=== PATIENT | female | born 1995 | race Hispanic/Latino ===

== ENCOUNTER 2021-11-09 15:09 | Outpatient (CLI) | payer OTHER | END 2021-11-09 15:10 | disposition home or self-care (01) | LOC: CSHULT 15:09 | PROVIDERS: ATTEND Nurse Practitioner Women's Health | DX: O09.212 Supervision of pregnancy with history of pre-term labor, second trimester (principal); Z3A.21 21 weeks gestation of pregnancy | CPT/HCPCS: 76805 ==

== ENCOUNTER 2022-03-02 20:59 | Inpatient (IN) | payer OTHER ==
[~2022-03-02 20:59] MED LIST: Bupivacaine 0.25% HCL 30 ML VIAL ONE
[2022-03-02] MEDS ORDERED: hydrALAZINE 20 MG/ML VIAL SLOW IVP PRN (21:48)
[2022-03-02] MEDS ORDERED: Lidocaine 1% (PF) 30 ML VIAL SC PRN (21:48)
[2022-03-02] MEDS ORDERED: Promethazine HCl 25 MG/ML VIAL IM PRN ×2 (21:48→23:58)
[2022-03-02] MEDS ORDERED: Ondansetron PF 4 MG/2 ML Vial IVP PRN ×2 (21:48→23:58)
[2022-03-02] MEDS ORDERED: Penicillin G Potassium 5 MILL.UNITS VIAL ONE (21:53)
[2022-03-02] MEDS ORDERED: Methylergonovine 0.2 MG/ML VIAL IM PRN (21:55)
[2022-03-02] MEDS ORDERED: Misoprostol 200 MCG TAB PR PRN (21:55)
[2022-03-02] MEDS ORDERED: Carboprost 250 MCG/ML AMP IM PRN (21:55)
[2022-03-02 22:00] LABS: Mean Corpuscular HGB CONC 33.5 g/dL (32.0-36.0); Mean Corpuscular Hemoglobin 26.2 pg (27.0-33.0); Mean Corpuscular Volume 78.1 fl (81.6-98.3); Mean Platelet Volume 12.3 fl (7.4-10.4); Platelet Count 195 10x3/uL (150-450); RBC Distribution Width 14.3 % (11.5-14.5); White Blood Cell (WBC) Count 10.2 10x3/uL (3.5-10.5)
[2022-03-02] MEDS ORDERED: Penicillin G Potassium 5 MILL.UNITS in Sodium Chloride 0.9% 100 ML IVPB SCH (22:00)
[2022-03-02 22:27] LABS: Hep B Surf Ag Non-Reactive S/CO (NonReactive)
[2022-03-02 22:28] LABS: Syphilis Antibody Nonreactive (Nonreactive); Syphilis Antibody Index 0.03 S/CO (<1.00 Non-Reactive)
[2022-03-02 22:29] LABS: HBSAg Index 0.19 S/CO (0-0.99)
[2022-03-02] MEDS ORDERED: Fentanyl 2 mcg/Bup 0.1% Cadd 100 ML ONE (23:18)
[2022-03-02] MEDS ORDERED: Fentanyl 2 mcg/Bupivacaine 0.1% Cassette 100 ML EPIDURAL SCH (23:45)
[2022-03-02] MEDS ORDERED: Communication Order-Pharmacy FS SCH (23:45)
[2022-03-02] MEDS ORDERED: ePHEDrine Sulfate 50 MG/10 ML VIAL SLOW IVP PRN (23:58)
[2022-03-02] MEDS ORDERED: diphenhydrAMINE 50 MG/ML VIAL IVP PRN (23:58)
[2022-03-02] MEDS ORDERED: Moisturizing Cream (Eucerin) 113 GM JAR TOP PRN (23:58)
[2022-03-02] MEDS ORDERED: Naloxone HCl 0.4 mg/ml Vial IVP PRN ×2 (23:58)
[2022-03-02] MEDS ORDERED: Acetaminophen 325 MG TAB PO PRN (23:58)
[2022-03-02] MEDS ORDERED: Lactated Ringer's 500 ML IV PRN (23:58)
[2022-03-02] MEDS ORDERED: NS w/ Oxytocin 30 units 500 ML IV SCH (23:59)
[2022-03-03] VITALS: BMI 43.4
[2022-03-03] MEDS: Penicillin G 2.5 MILL.units 2.5 MILL.UNITS in Premix Bag 1 BAG IVPB SCH ×2 (03:16→13:33)
[2022-03-03] MEDS ORDERED: Fentanyl 2 mcg/Bup 0.1% Cadd 100 ML ONE (07:17)
[2022-03-03] MEDS ORDERED: Milk Of Magnesia 30 ML UDCUP PO PRN (10:43)
[2022-03-03] MEDS ORDERED: hydrALAZINE 20 MG/ML VIAL SLOW IVP PRN (10:43)
[2022-03-03] MEDS ORDERED: Bisacodyl 10 MG SUPP PR PRN (10:43)
[2022-03-03] MEDS ORDERED: diphenhydrAMINE 25 MG CAP PO PRN (10:43)
[2022-03-03] MEDS ORDERED: Lanolin Ointment 7 GM TUBE TOP PRN (10:43)
[2022-03-03] MEDS ORDERED: Boostrix 0.5 ML (Tdap) VIAL IM ONE (10:43)
[2022-03-03] MEDS ORDERED: Promethazine HCl 25 MG/ML VIAL IM PRN (10:43)
[2022-03-03] MEDS ORDERED: Ondansetron PF 4 MG/2 ML Vial IVP PRN (10:43)
[2022-03-03] MEDS: Ibuprofen 800 MG TAB PO SCH ×2 (13:55→21:24)
[2022-03-03] MEDS: Ferrous Sulfate 325 MG TAB PO SCH (15:04)
[2022-03-03 18:05] LABS: SARS-CoV-2 PCR by NAA Not Detected (NotDetected)
[2022-03-03] MEDS: HYDROcodone/Acetaminophen 5/325 mg Tablet PO PRN (19:21)
[2022-03-03] MEDS: Benzocaine-Menthol 82.5 ML CAN TOP PRN (19:22)
[2022-03-03] MEDS: Docusate 100 MG CAP PO SCH (21:24)
[2022-03-04] MEDS: Ibuprofen 800 MG TAB PO SCH ×3 (05:14→22:01)
[2022-03-04] MEDS: Ferrous Sulfate 325 MG TAB PO SCH ×2 (08:34→16:51)
[2022-03-04] MEDS: Benzocaine-Menthol 82.5 ML CAN TOP PRN (08:40)
[2022-03-04] MEDS: Prenatal Vitamin 1 TAB PO SCH (08:41)
[2022-03-04] MEDS: Docusate 100 MG CAP PO SCH ×2 (08:41→22:05)
[2022-03-04] MEDS: HYDROcodone/Acetaminophen 5/325 mg Tablet PO PRN ×3 (08:41→20:04)
[2022-03-05] MEDS: Ibuprofen 800 MG TAB PO SCH (06:10)
[2022-03-05] MEDS: Ferrous Sulfate 325 MG TAB PO SCH ×2 (07:16→07:17)
[2022-03-05 07:58] VITALS: BP 124/66; TEMP 98.2
[2022-03-05] MEDS: Docusate 100 MG CAP PO SCH (08:38)
[2022-03-05] MEDS: Prenatal Vitamin 1 TAB PO SCH (08:38)
[2022-03-05] MEDS ORDERED: Measles/Mumps/Rubella 10 MCG/0.5 ML VIAL SC ONE (09:30)
== END 2022-03-05 14:40 | disposition home or self-care (01) | DRG 807 ==
LOC: CSHLD/OP 20:59 → CSHLD 21:59 → CSHPP 03-03 13:45
PROVIDERS: ADMIT Family Medicine; ATTEND Family Medicine
PROC: 10E0XZZ Delivery of Products of Conception, External Approach (ICD-10-PCS; principal; 2022-03-03)
PROC: 0KQM0ZZ Repair Perineum Muscle, Open Approach (ICD-10-PCS; 2022-03-03)
DX: O42.02 Full-term premature rupture of membranes, onset of labor within 24 hours of rupture (principal); Z37.0 Single live birth; Z3A.37 37 weeks gestation of pregnancy; Z20.822 Contact with and (suspected) exposure to COVID-19; O99.824 Streptococcus B carrier state complicating childbirth; O99.214 Obesity complicating childbirth; O70.1 Second degree perineal laceration during delivery; E66.01 Morbid (severe) obesity due to excess calories; O24.420 Gestational diabetes mellitus in childbirth, diet controlled
CPT/HCPCS: 36415; 51702; 85027; 86780; 86850; 86900; 86901; 87340; 90707; 99285; J2210; J2540; J3490; S0020; U0003; U0005

== ENCOUNTER 2023-06-26 15:02 | Day surgery (SDC) | payer OTHER ==
[2023-06-26 15:33] VITALS: BMI 43.2
[2023-06-26] MEDS ORDERED: hydrALAZINE 20 MG/ML VIAL SLOW IVP PRN (16:14)
[2023-06-26] MEDS ORDERED: Lactated Ringer's 1,000 ML IV SCH (16:15)
[2023-06-26 17:10] LABS: Bilirubin Neg (Negative); Blood, Urine 10 (Negative); Clarity Clear (Clear); Glucose, Urine (Dipstick) Normal (Negative); Ketone, Urine 150 mg/dL (Negative); Leukocyte Negative (Negative); Nitrite Negative (Negative); Protein, Urine (Dipstick) 30 mg/dl (Neg-Trace); Specific Gravity, Urine 1.025 (1.005-1.030); Urobilinogen Normal mg/dL (Less than 2)
[2023-06-26 17:37] LABS: CAUTI Indications for Culture Pregnancy; RBC/HPF 0-3 HPF (0-3); WBC/HPF 0-3 HPF (0-3)
[2023-06-26 17:38] LABS: Bacteria/HPF None Seen HPF (None Seen)
[2023-06-26 17:39] LABS: #Basophils 0.1 10x3/uL (0.0-0.2); #Eosinphils 0.1 10x3/uL (0.0-0.5); #Monocytes 0.7 10x3/uL (0.0-1.1); #Neutrophils 8.3 10x3/uL (1.5-8.4); %Basophils 0.4 % (0.0-2.0); %Eosinophils 0.4 % (0.0-6.0); %Lymphocytes 20.5 % (18.0-47.0); %Monocytes 5.7 % (0.0-10.0); %Neutrophils 72.1 % (40.0-75.0); Hematocrit 34.8 % (34.9-44.5); Hemoglobin 11.6 g/dL (12.0-15.5); Mean Corpuscular HGB CONC 33.3 g/dL (32.0-36.0); Mean Corpuscular Hemoglobin 27.6 pg (27.0-33.0); Mean Corpuscular Volume 82.9 fl (81.6-98.3); Mean Platelet Volume 11.2 fl (7.4-10.4); Platelet Count 186 10x3/uL (150-450); RBC Distribution Width 13.8 % (11.5-14.5); White Blood Cell (WBC) Count 11.5 10x3/uL (3.5-10.5)
[2023-06-26 17:40] LABS: Urine Culture Reflex Yes Yes
[2023-06-26 17:53] LABS: ALT (SGPT) 24 U/L (8-55); AST (SGOT) 19 U/L (5-34); Albumin 3.4 g/dL (3.5-5.0); Alkaline Phosphatase 84 U/L (40-110); Anion Gap 13 mmol/L (10-20); BUN (Urea Nitrogen) 8 mg/dL (7.0-18.7); Bilirubin, Total 0.3 mg/dL (0.2-1.2); Calc. Creatinine Clearance 264 mL/min (70-130); Calcium 8.6 mg/dL (7.8-10.44); Carbon Dioxide 21 mmol/L (22-29); Chloride 106 mmol/L (98-107); Estimated GFR 128; Globulin 3.2 g/dL (2.4-3.5); Glucose 94 mg/dL (70-105); Potassium 3.6 mmol/L (3.5-5.1); Protein, Total 6.6 g/dL (6.0-8.3); Sodium 136 mmol/L (136-145)
[2023-06-26] MEDS ORDERED: NIFEdipine 10 MG CAP PO SCH (18:00)
[2023-06-26 18:02] LABS: FFN Internal QC Analyzer PASS (PASS); FFN Internal QC Cassette PASS (PASS); Fetal Fibronectin Negative (Negative)
== END 2023-06-26 19:37 | disposition home or self-care (01) ==
LOC: CSHLD/OP 15:02
PROVIDERS: ATTEND Family Medicine
DX: O47.03 False labor before 37 completed weeks of gestation, third trimester (principal); O24.419 Gestational diabetes mellitus in pregnancy, unspecified control; O99.283 Endocrine, nutritional and metabolic diseases complicating pregnancy, third trimester; E86.0 Dehydration; Z79.899 Other long term (current) drug therapy; Z79.84 Long term (current) use of oral hypoglycemic drugs; Z3A.31 31 weeks gestation of pregnancy
CPT/HCPCS: 76815; 80053; 81001; 82731; 85025; 87086

== ENCOUNTER 2023-08-06 08:52 | Inpatient (IN) | payer OTHER ==
[2023-08-06] MEDS ORDERED: Promethazine HCl 25 MG SUPP PR PRN ×2 (09:40→16:16)
[2023-08-06] MEDS ORDERED: Promethazine HCl 25 MG/ML VIAL IM PRN ×3 (09:40→16:16)
[2023-08-06] MEDS ORDERED: Meperidine HCl/PF 25 MG/ML VIAL SLOW IVP PRN ×2 (09:40→14:33)
[2023-08-06] MEDS ORDERED: Moisturizing Cream (Eucerin) 113 GM JAR TOP PRN ×2 (09:40→16:16)
[2023-08-06] MEDS ORDERED: diphenhydrAMINE 50 MG/ML VIAL IVP PRN ×2 (09:40→16:16)
[2023-08-06] MEDS ORDERED: Naloxone HCl 0.4 mg/ml Vial IVP PRN ×4 (09:40→16:16)
[2023-08-06] MEDS ORDERED: Ondansetron PF 4 MG/2 ML Vial IVP PRN ×5 (09:40→21:57)
[2023-08-06] MEDS ORDERED: Naloxone HCl 0.4 mg/ml Vial IV PRN ×2 (09:40→16:16)
[2023-08-06] MEDS ORDERED: fentaNYL 50 mcg/mL 1 mL Vial SLOW IVP PRN ×2 (09:40→14:32)
[2023-08-06] MEDS ORDERED: Communication Order-Pharmacy FS SCH ×2 (09:45→16:30)
[2023-08-06] MEDS ORDERED: Misoprostol 200 MCG TAB PR PRN (10:34)
[2023-08-06] MEDS ORDERED: Diphenoxylate HCl/Atropine Tablet PO PRN (10:34)
[2023-08-06] MEDS ORDERED: Lactated Ringer's 1,000 ML IV SCH (10:34)
[2023-08-06] MEDS ORDERED: Carboprost 250 MCG/ML AMP IM PRN (10:34)
[2023-08-06] MEDS ORDERED: CEFAZOLIN 2 GM in Sodium Chloride 0.9% 100 ML IVPB SCH (10:34)
[2023-08-06] MEDS ORDERED: hydrALAZINE 20 MG/ML VIAL SLOW IVP PRN ×2 (10:34→21:57)
[2023-08-06] MEDS ORDERED: Oxytocin 30 units/NS 500 ML 500 ML IV SCH (10:34)
[2023-08-06] MEDS ORDERED: Methylergonovine 0.2 MG/ML VIAL IM PRN (10:34)
[2023-08-06] MEDS ORDERED: Famotidine/PF 20 mg/2ml Vial SLOW IVP PRN (10:34)
[2023-08-06] MEDS ORDERED: Tranexamic Acid 1,000 MG/10 ML VIAL IVP PRN (10:34)
[2023-08-06] MEDS ORDERED: Azithromycin 500 MG in Sodium Chloride 0.9% 250 ML 250 ML IVPB SCH (10:34)
[2023-08-06] MEDS ORDERED: Bicitra 30 ML UDCUP PO PRN (10:34)
[2023-08-06 10:46] VITALS: BMI 43.9
[2023-08-06 10:52] LABS: Hematocrit 34.4 % (34.9-44.5); Hemoglobin 11.5 g/dL (12.0-15.5); Mean Corpuscular HGB CONC 33.4 g/dL (32.0-36.0); Mean Corpuscular Hemoglobin 27.5 pg (27.0-33.0); Mean Corpuscular Volume 82.3 fl (81.6-98.3); Mean Platelet Volume 12.2 fl (7.4-10.4); Platelet Count 167 10x3/uL (150-450); RBC Distribution Width 13.9 % (11.5-14.5); Red Blood Cell (RBC) Count 4.18 10x6/uL (3.90-5.03); White Blood Cell (WBC) Count 9.9 10x3/uL (3.5-10.5)
[2023-08-06 11:17] LABS: Anion Gap 14 mmol/L (10-20); BUN (Urea Nitrogen) 10 mg/dL (7.0-18.7); Calc. Creatinine Clearance 252 mL/min (70-130); Calcium 8.5 mg/dL (7.8-10.44); Carbon Dioxide 19 mmol/L (22-29); Chloride 108 mmol/L (98-107); Estimated GFR 126; Glucose 100 mg/dL (70-105); Sodium 137 mmol/L (136-145)
[2023-08-06 11:30] LABS: HBSAg Index 0.11 S/CO (0-0.99); Hep B Surf Ag - L&D Non-Reactive S/CO (NonReactive); Syphilis Antibody Nonreactive (Nonreactive); Syphilis Antibody Index 0.06 S/CO (<1.00 Non-Reactive)
[2023-08-06] MEDS ORDERED: Bupivacaine 0.75% W/DEXTROSE 8.25% 2 ML AMP ONE (12:29)
[2023-08-06] MEDS ORDERED: Oxytocin 10 UNITS/ML VIAL ONE (12:29)
[2023-08-06] MEDS ORDERED: Morphine PF 10 MG/10 ML VIAL ONE (12:29)
[2023-08-06] MEDS ORDERED: Lidocaine 1% PF 5 ML VIAL ONE (12:29)
[2023-08-06] MEDS ORDERED: Phenylephrine 40 MG/NS 250 ML 250 ML ONE ×2 (12:29)
[2023-08-06] MEDS ORDERED: fentaNYL 50 mcg/mL 1 mL Vial ONE (12:29)
[2023-08-06] MEDS ORDERED: PHENYLEPHRINE-NS 100 MCG/ML 10 ML SYRINGE ONE (12:29)
[2023-08-06 13:42] LABS: RapidComm Collect By CBN; pH (Cord, venous) 7.311 (7.250-7.350)
[2023-08-06 13:43] LABS: RapidComm Collect By CBN
[2023-08-06 15:21] LABS: Hemoglobin A1c 6.8 % (4.0-6.0)
[2023-08-06] MEDS ORDERED: Oxytocin 30 units/NS 500 ML 500 ML ONE (15:45)
[2023-08-06] MEDS ORDERED: Ketorolac Tromethamine 30 MG/ML VIAL IVP PRN (16:16)
[2023-08-06] MEDS ORDERED: Morphine 4 MG/ML VIAL SLOW IVP PRN (16:23)
[2023-08-06] MEDS ORDERED: Ketorolac Tromethamine 30 MG/ML VIAL IVP SCH (19:00)
[2023-08-06] MEDS ORDERED: Lanolin Ointment 7 GM TUBE TOP PRN (21:57)
[2023-08-06] MEDS ORDERED: Bisacodyl 10 MG SUPP PR PRN (21:57)
[2023-08-06] MEDS ORDERED: diphenhydrAMINE 25 MG CAP PO PRN (21:57)
[2023-08-06] MEDS ORDERED: Boostrix 0.5 ML (Tdap) VIAL (>/=7 yrs of age) IM ONE (21:57)
[2023-08-06] MEDS ORDERED: Docusate 100 MG CAP PO SCH (22:15)
[2023-08-06] MEDS ORDERED: Ferrous Sulfate 325 MG TAB PO SCH (22:15)
[2023-08-06] MEDS: Ketorolac Tromethamine 30 MG/ML VIAL IVP SCH (23:13)
[2023-08-07 04:17] LABS: Hemoglobin 9.4 g/dL (12.0-15.5); Mean Corpuscular HGB CONC 33.6 g/dL (32.0-36.0); Mean Corpuscular Hemoglobin 27.6 pg (27.0-33.0); Mean Corpuscular Volume 82.1 fl (81.6-98.3); Mean Platelet Volume 12.7 fl (7.4-10.4); Platelet Count 155 10x3/uL (150-450); RBC Distribution Width 13.8 % (11.5-14.5); Red Blood Cell (RBC) Count 3.41 10x6/uL (3.90-5.03); White Blood Cell (WBC) Count 9.8 10x3/uL (3.5-10.5)
[2023-08-07] MEDS: Ketorolac Tromethamine 30 MG/ML VIAL IVP SCH ×2 (05:16→13:25)
[2023-08-07] MEDS: metFORMIN 500 MG TAB PO SCH ×2 (08:33→21:25)
[2023-08-07] MEDS: Docusate 100 MG CAP PO SCH ×2 (08:34→21:25)
[2023-08-07] MEDS: Simethicone Chewable 80 MG TAB PO PRN ×2 (08:34→17:51)
[2023-08-07] MEDS: HYDROcodone/Acetaminophen 5/325 mg Tablet PO PRN ×4 (08:34→21:26)
[2023-08-07] MEDS: Prenatal Vitamin 1 TAB PO SCH (08:34)
[2023-08-07] MEDS: Lactated Ringer's 1,000 ML IV SCH (09:30)
[2023-08-07] MEDS: Ferrous Sulfate 325 MG TAB PO SCH ×2 (10:23→21:25)
[2023-08-07] MEDS: Ibuprofen 800 MG TAB PO SCH ×2 (13:23→21:25)
[2023-08-08] MEDS: HYDROcodone/Acetaminophen 5/325 mg Tablet PO PRN ×3 (02:54→19:33)
[2023-08-08] MEDS: Ibuprofen 800 MG TAB PO SCH ×3 (05:18→21:36)
[2023-08-08] MEDS: metFORMIN 500 MG TAB PO SCH ×2 (07:51→19:31)
[2023-08-08] MEDS: Docusate 100 MG CAP PO SCH ×2 (07:51→19:30)
[2023-08-08] MEDS: Prenatal Vitamin 1 TAB PO SCH (07:51)
[2023-08-08] MEDS: Ferrous Sulfate 325 MG TAB PO SCH ×2 (07:51→19:30)
[2023-08-09] MEDS: HYDROcodone/Acetaminophen 5/325 mg Tablet PO PRN ×3 (04:51→12:11)
[2023-08-09] MEDS: Ibuprofen 800 MG TAB PO SCH (04:51)
[2023-08-09 08:05] VITALS: BP 106/59; TEMP 98.4
[2023-08-09] MEDS: metFORMIN 500 MG TAB PO SCH (08:39)
[2023-08-09] MEDS: Ferrous Sulfate 325 MG TAB PO SCH (08:40)
[2023-08-09] MEDS: Prenatal Vitamin 1 TAB PO SCH (08:40)
[2023-08-09] MEDS: Docusate 100 MG CAP PO SCH (08:40)
== END 2023-08-09 12:25 | disposition home or self-care (01) | DRG 785 ==
LOC: CSHLD 08:52 → CSHPP 21:38
PROVIDERS: ADMIT Family Medicine; ATTEND Family Medicine
PROC: 10D00Z1 Extraction of Products of Conception, Low, Open Approach (ICD-10-PCS; principal; 2023-08-06)
PROC: 0UB50ZZ Excision of Right Fallopian Tube, Open Approach (ICD-10-PCS; 2023-08-06)
PROC: 3E0P05Z Introduction of Adhesion Barrier into Female Reproductive, Open Approach (ICD-10-PCS; 2023-08-06)
DX: O24.425 Gestational diabetes mellitus in childbirth, controlled by oral hypoglycemic drugs (principal); Z3A.37 37 weeks gestation of pregnancy; Z37.0 Single live birth; Z79.84 Long term (current) use of oral hypoglycemic drugs; Z79.82 Long term (current) use of aspirin; O99.824 Streptococcus B carrier state complicating childbirth; N83.8 Other noninflammatory disorders of ovary, fallopian tube and broad ligament; O99.892 Other specified diseases and conditions complicating childbirth
CPT/HCPCS: 36415; 80048; 82805; 83036; 85027; 86780; 86850; 86900; 86901; 87340; 88304; 88305; J0456; J1885; J2175; J2210; J2274; J2590; J3010; J3490; J7050